=== PATIENT | female | born 1955 ===

== ENCOUNTER 2022-12-12 04:53 | Day surgery (SDC) | payer OTHER ==
[~2022-12-12] VITALS: Ht 162.6 cm; Wt 77.6 kg
[~2022-12-12 04:53] MED LIST: PANADOL EXTRA500 MG PO
[2022-12-12] MEDS ORDERED: PERCOCET 5-3251 EACH PO (08:42)
== END 2022-12-12 12:40 | disposition home or self-care (01) ==
LOC: CIR.AMB 04:53
PROVIDERS: ATTEND Surgery
DX: K64.8 Other hemorrhoids (principal); K64.4 Residual hemorrhoidal skin tags; K62.5 Hemorrhage of anus and rectum